=== PATIENT | male | born 1980 ===

== ENCOUNTER 2018-06-20 00:02 | Emergency (ER) | payer SELFPAY ==
[2018-06-20 00:12] VITALS: O2SAT 98
[2018-06-20] MEDS ORDERED: Tetanus/Diphtheria Toxoids 0.5 ml Syringe IM ONE ×2 (00:36→03:43)
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
[2018-06-20] MEDS ORDERED: Lidocaine 2% MPF (5 ml) Inj ONE (02:26)
[2018-06-20 04:21] VITALS: BP 128/74; PULSE 78; RESP 20; TEMP 98
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
== END 2018-06-20 04:19 | disposition home or self-care (01) ==
LOC: C.ER 00:02
DX: S01.411A Laceration without foreign body of right cheek and temporomandibular area, initial encounter (principal); Y04.0XXA Assault by unarmed brawl or fight, initial encounter; Y92.9 Unspecified place or not applicable; Z23 Encounter for immunization

== ENCOUNTER 2018-06-26 19:11 | Emergency (ER) | payer SELFPAY ==
[2018-06-26 19:22] VITALS: BP 128/77; PULSE 57; RESP 18; TEMP 97.7; O2SAT 95
--- NOTE | 2018-06-26 19:48 | C.PDOC ---
History Of Present Illness 38 year old male presents to ED for suture removal to right cheek. Patient reports he received sutures last Thursday on 06/19/18. Patient offers no other medical complaints. Time Seen by Provider: 06/26/18 19:26 Chief Complaint (Nursing): Suture/Staple Removal History Per: Patient History/Exam Limitations: no limitations Onset/Duration Of Symptoms: Days Ago Past Medical History Reviewed: Historical Data, Nursing Documentation, Vital Signs Vital Signs: Last Vital Signs Temp 97.7 F 06/26/18 19:21 Pulse 57 L 06/26/18 19:21 Resp 18 06/26/18 19:21 BP 128/77 06/26/18 19:21 Pulse Ox 95 06/26/18 19:21 Surgical History: No Surg Hx Family History: States: No Known Family Hx - Social History Hx Alcohol Use: No Hx Substance Use: No - Immunization History Hx Tetanus Toxoid Vaccination: No Hx Influenza Vaccination: No Hx Pneumococcal Vaccination: No Review Of Systems Except As Marked, All Systems Reviewed And Found Negative. Constitutional: Negative for: Fever, Chills Neurological: Negative for: Weakness, Numbness Physical Exam - Physical Exam Appears: Non-toxic, No Acute Distress Skin: Warm, Dry, Other (well healed lac site with sutures in place) Head: Atraumatic, Normacephalic Eye(s): bilateral: PERRL, EOMI Cardiovascular: Rhythm Regular Respiratory: Normal Breath Sounds, No Rales, No Rhonchi, No Wheezing Neurological/Psych: Oriented x3 Additional Physical Exam Comments: Healed well, no signs of infection. ED Course And Treatment O2 Sat by Pulse Oximetry: 95 (RA) Pulse Ox Interpretation: Normal Disposition Counseled Patient/Family Regarding: Diagnosis, Need For Followup - Disposition Referrals: [facility] [Outside] [facility] [Outside] Disposition: HOME/ ROUTINE Disposition Time: 19:47 Condition: STABLE Additional Instructions: FOLLOW UP IN CLINIC NEXT WEEK FOR RE-EVALUATION. 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 - Scribe Statement The provider has reviewed the documentation as recorded by the Scribe Mauricio Jefferson All medical record entries made by the Scribe were at my direction and personally dictated by me. I have reviewed the chart and agree that the record accurately reflects my personal performance of the history, physical exam, medical decision making, and the department course for this patient. I have also personally directed, reviewed, and agree with the discharge instructions and di sposition.
== END 2018-06-26 20:00 | disposition home or self-care (01) ==
LOC: C.ER 19:11
DX: Z48.02 Encounter for removal of sutures (principal)